=== PATIENT | female | born 1960 | race Caucasian/White ===

== ENCOUNTER → 2017-03-28 | Outpatient (REF) | payer OTHER | LOC: M LAB REF 13:14 | PROVIDERS: ATTEND Obstetrics & Gynecology | DX: Z12.4 Encounter for screening for malignant neoplasm of cervix (principal) ==

== ENCOUNTER → 2017-06-09 | Outpatient (CLI) | payer OTHER ==
--- NOTE | 2017-06-09 11:52 | REPMRS ---
Patient History The patient states she had a clinical breast exam in March 2017. Patient had first child at age 34. Family history of unknown cancer in father at age 72 and breast cancer in mother at age 68. Benign core biopsy of the right breast, 2005. Took hormonal contraceptives for 10 years. Digital Mammo Screening Bilat: June 09, 2017 - Exam #: [id number] Bilateral CC and MLO view(s) were taken. Technologist: Deanne Bolaños, Technologist Prior study comparison: January 22, 2016, bilateral digital mammo screening bilat performed at [facility]. November 14, 2014, bilateral bilat screen digital mammo, performed at [facility] ([facility] FINDINGS: There are scattered fibroglandular densities. There has been no change in the appearance of the mammogram from the prior studies. There is a mild amount of residual fibroglandular tissue which is fairly symmetric. There is no interval development of dominant mass, architectural distortion, or clustered microcalcification suggestive of malignancy. ASSESSMENT: BI-RADS/ACR category 1 mammogram. Negative. Recommendation Routine screening mammogram in 1 year (for women over age 40). This mammogram was interpreted with the aid of an FDA-approved computer-aided dectection system. Electronically Signed By: Gilberto Wu MD 06/09/17 [id number]
== END ==
LOC: M RAD 10:10
PROVIDERS: ATTEND Obstetrics & Gynecology
DX: Z12.31 Encounter for screening mammogram for malignant neoplasm of breast (principal)

== ENCOUNTER → 2018-06-22 | Outpatient (CLI) | payer OTHER | LOC: M WHC 13:31 | DX: Z12.31 Encounter for screening mammogram for malignant neoplasm of breast (principal); Z13.820 Encounter for screening for osteoporosis ==

== ENCOUNTER → 2019-02-15 | Day surgery (SDC) | payer OTHER ==
[~2019-02-15] VITALS: Ht 162.6 cm; Wt 97.1 kg
[~2019-02-15] MED LIST: BUPR1TAB53 PO; GLYCOPYRROLATE INJ 0.2 MG/ML 2 ML VIAL As Ordered ONE; LIDOCAINE 2% INJ 100 MG/5 ML SDV (FOR ANES.) As Ordered ONE; NS 1,000 ML IV ONE; PROPOFOL 200 MG/20 ML VIAL As Ordered ONE; TIMO0.5S42 OP
--- NOTE | 2019-02-15 07:51 | ROOR ---
Patient Name: Lidia Weems Procedure Date: 02/15/2019 7:32 AM Date of : 1960 Age: 59 Room: [facility] Gender: Female Note Status: Finalized Procedure: Colonoscopy Indications: Screening for colorectal malignant neoplasm Providers: DO Jessica Newby MD: Vance Chapman MD Requesting Provider: Medicines: Propofol per Anesthesia Complications: No immediate complications. Procedure: Pre-Anesthesia Assessment: - Prior to the procedure, a History and Physical was performed, and patient medications and allergies were reviewed. The patient is competent. The risks and benefits of the procedure and the sedation options and risks were discussed with the patient. All questions were answered and informed consent was obtained. Patient identification and proposed procedure were verified by the physician, the nurse, the anesthesiologist and the greenhouse technician in the endoscopy suite. Mental Status Examination: alert and oriented. Airway Examination: normal oropharyngeal airway and neck mobility. Respiratory Examination: clear to auscultation. CV Examination: normal. Prophylactic Antibiotics: The patient does not require prophylactic antibiotics. Prior Anticoagulants: The patient has taken no previous anticoagulant or antiplatelet agents. ASA Grade Assessment: II - A patient with mild systemic disease. After reviewing the risks and benefits, the patient was deemed in satisfactory condition to undergo the procedure. The anesthesia plan was to use monitored anesthesia care (MAC). Immediately prior to administration of medications, the patient was re-assessed for adequacy to receive sedatives. The heart rate, respiratory rate, oxygen saturations, blood pressure, adequacy of pulmonary ventilation, and response to care were monitored throughout the procedure. The physical status of the patient was re-assessed after the procedure. The Colonoscope was introduced through the anus and advanced to the cecum, identified by appendiceal orifice and ileocecal valve. The colonoscopy was performed without difficulty. The patient tolerated the procedure well. Findings: The perianal exam findings include non-thrombosed internal hemorrhoids and internal hemorrhoids (Grade I). Multiple small-mouthed diverticula were found in the sigmoid colon. Estimated blood loss: none. The exam was otherwise without abnormality on direct and retroflexion views. Impression: - Non-thrombosed internal hemorrhoids and internal hemorrhoids (Grade I) found on perianal exam. - Diverticulosis in the sigmoid colon. - The examination was otherwise normal on direct and retroflexion views. - No specimens collected. Recommendation: - Patient has a contact number available for emergencies. The signs and symptoms of potential delayed complications were discussed with the patient. Return to normal activities tomorrow. Written discharge instructions were provided to the patient. - Repeat colonoscopy in 5-10 years for screening purposes. - Return to my office PRN. Gilberto Mittal DO 02/15/2019 7:50:33 AM This report has been signed electronically. Number of Addenda: 0 Note Initiated On: 02/15/2019 7:32 AM Estimated Blood Loss: Estimated blood loss: none.
[2019-02-15 08:15] VITALS: BP 116/70
== END | disposition home or self-care (01) ==
LOC: M OPP 06:48
PROVIDERS: ATTEND Surgery
DX: Z12.11 Encounter for screening for malignant neoplasm of colon (principal); K64.0 First degree hemorrhoids; K57.30 Diverticulosis of large intestine without perforation or abscess without bleeding; Z79.899 Other long term (current) drug therapy; Z88.1 Allergy status to other antibiotic agents

== ENCOUNTER → 2019-07-05 | Outpatient (CLI) | payer OTHER ==
[~2019-07-05] MED LIST changes: -GLYCOPYRROLATE INJ 0.2 MG/ML 2 ML VIAL As Ordered ONE; -LIDOCAINE 2% INJ 100 MG/5 ML SDV (FOR ANES.) As Ordered ONE; -NS 1,000 ML IV ONE; -PROPOFOL 200 MG/20 ML VIAL As Ordered ONE
--- NOTE | 2019-07-05 13:23 | REPMRS ---
Patient History The patient states she had a clinical breast exam in 03/2019. Patient is postmenopausal and had first child at age 34. Family history of breast cancer at age 68 in mother. Benign core biopsy of the right breast, 2006. Took hormonal contraceptives for 10 years. 3D TOMOSYNTHESIS WAS PERFORMED. Digital Woman Screen Mammo: July 05, 2019 - Exam #: [id number] Bilateral CC and MLO view(s) were taken. Technologist: Becky Adame, Technologist Prior study comparison: June 22, 2018, bilateral digital woman screen mammo performed at [facility]. June 09, 2017, bilateral digital mammo screening bilat, performed at [facility]. FINDINGS: There are scattered fibroglandular densities. There has been no change in the appearance of the mammogram from the prior studies. There is a mild amount of residual fibroglandular tissue which is fairly symmetric. There is no interval development of dominant mass, architectural distortion, or clustered microcalcification suggestive of malignancy. Assessment: BI-RADS/ACR category 1 mammogram. Negative Mammogram. Recommendation Routine screening mammogram in 1 year (for women over age 40). This mammogram was interpreted with the aid of an FDA-approved computer-aided dectection system. THE LIFETIME RISK OF BREAST CANCER IS 22.0%, THEREFORE SUPPLEMENTAL SCREENING MRI OF THE BREASTS IS RECOMMENDED IN 6 MONTHS. Electronically Signed By: Gilberto Wu MD 07/05/19 [id number]
== END ==
LOC: M WHC 11:30
PROVIDERS: ATTEND Obstetrics & Gynecology
DX: Z12.31 Encounter for screening mammogram for malignant neoplasm of breast (principal); Z80.3 Family history of malignant neoplasm of breast

== ENCOUNTER → 2020-08-11 | Outpatient (CLI) | payer OTHER ==
--- NOTE | 2020-08-11 14:36 | REPMRS ---
Patient History The patient states she had a clinical breast exam in March 2020.Family history of breast cancer at age 68 in mother. Benign core biopsy of the right breast, 2006. Took hormonal contraceptives for 10 years. 3D TOMOSYNTHESIS WAS PERFORMED. FERNANDO Olivas. Digital Woman Screen Mammo: August 11, 2020 - Exam #: [id number] Bilateral CC and MLO view(s) were taken. Technologist: Marcella Epperson, Technologist Prior study comparison: July 05, 2019, bilateral digital woman screen mammo performed at [facility]. June 22, 2018, bilateral digital woman screen mammo performed at [facility]. FINDINGS: There are scattered fibroglandular densities. There is a fairly symmetric fibroglandular pattern in both breasts. There has been no interval development of masses, areas of architectural distortion or clusters of microcalcifications typical of malignancy. There is a stable small nodular opacity in the lower outer left breast. Assessment: BI-RADS/ACR category 2 mammogram. Benign Findings. Recommendation Routine screening mammogram of both breasts in 1 year (for women over age 40). This mammogram was interpreted with the aid of an FDA-approved computer-aided dectection system. THE LIFETIME RISK OF BREAST CANCER IS 21.5 %, THEREFORE SUPPLEMENTAL SCREENING MRI OF THE BREASTS IS RECOMMENDED IN 6 MONTHS. Electronically Signed By: Gilberto Wu MD 08/11/20 0434
--- NOTE | 2020-08-24 15:17 | DEXA ---
AP SPINE L1 - L4 1.069 -1.0 0.1 LT FEMUR TOTAL 0.951 -0.4 0.4 LT NECK 0.873 -1.2 0.0 RT FEMUR TOTAL 0.944 -0.5 0.3 RT NECK 0.999 -0.3 0.9 TOTAL BODY TOTAL OTHER COMMENTS: Normal bone densitometry of the right hip. There is low bone density of the spine. There is low bone density of the left hip. The density of the spine has decreased 4.4% since 06/22/2018. The density of the left hip has decreased 3.3% since 06/22/2018. The density of the right hip has decreased 3.4% since 06/22/2018. FOLLOW-UP: Recommendation for the next bone density exam: 2 years. ELIZA
== END ==
LOC: M WHC 12:37
PROVIDERS: ATTEND Obstetrics & Gynecology
DX: Z12.31 Encounter for screening mammogram for malignant neoplasm of breast (principal); Z13.820 Encounter for screening for osteoporosis

== ENCOUNTER → 2021-03-08 | Outpatient (REF) | payer OTHER, SELFPAY | LOC: M LAB REF 12:10 | PROVIDERS: ATTEND Obstetrics & Gynecology | DX: R39.15 Urgency of urination (principal) ==

== ENCOUNTER → 2021-05-14 | Outpatient (REF) | payer OTHER ==
[2021-05-14 14:40] LABS: ALBUMIN 3.7 GM/DL (3.2-5.2); ALT/SGPT 27 U/L (12-78); BILIRUBIN,TOTAL 0.6 MG/DL (0.2-1.0); BLOOD UREA NITROGEN 10 MG/DL (7-18); CARBON DIOXIDE LEVEL 27 MEQ/L (21-32); CHLORIDE LEVEL 108 MEQ/L (98-107); CHOLESTEROL LEVEL 184 MG/DL (<200); CREATININE FOR GFR 0.76 MG/DL (0.55-1.30); GLOMERULAR FILTRATION RATE > 60.0 (>51); GLUCOSE, FASTING 90 MG/DL (70-100); HDL CHOLESTEROL 40 MG/DL (>40); LDL CHOLESTEROL 117 MG/DL (<100); NON-HDL-C 144 MG/DL; POTASSIUM SERUM 4.4 MEQ/L (3.5-5.1); SODIUM LEVEL 141 MEQ/L (136-145); TOTAL PROTEIN 6.6 GM/DL (6.4-8.2); TRIGLYCERIDES LEVEL 133 MG/DL (<150)
== END ==
LOC: M LAB REF 12:39
PROVIDERS: ATTEND Family Medicine
DX: N95.1 Menopausal and female climacteric states (principal); E78.5 Hyperlipidemia, unspecified; F34.1 Dysthymic disorder

== ENCOUNTER → 2021-08-27 | Outpatient (CLI) | payer OTHER ==
--- NOTE | 2021-08-27 12:35 | REPMRS ---
Patient History The patient states she had a clinical breast exam in May 2021. Family history of breast cancer at age 68 in mother. Benign core biopsy of the right breast, 2006. Took hormonal contraceptives for 10 years. Patient states no breast complaints today. Patient has signed MRS History Sheet. Digital Woman Screen Mammo: August 27, 2021 - Exam #: [id number] Bilateral CC and MLO view(s) were taken. Technologist: Yasmeen Willis, Technologist Prior study comparison: August 11, 2020, bilateral digital woman screen mammo performed at [facility]. July 05, 2019, bilateral digital woman screen mammo performed at [facility]. FINDINGS: There are scattered fibroglandular densities. Screening. Digital screening (2D) mammography was performed bilaterally in the CC and MLO projections. Additionally, breast tomosynthesis (3D mammography) was performed bilaterally in the CC and MLO projections. Todays exam was compared to the prior exam/exams. By history, the patient has no complaints of a palpable breast abnormality or other significant breast complaints. The breasts are unchanged in size and shape. There are no gloria-soft tissue densities or spiculated masses. There is no internal architectural distortion. There are no suspicious gloria-calcific clusters. Skin thickening or nipple retraction is not present. IMPRESSION: BI-RADS Category 2- Benign Findings. There is no evidence of malignant alteration of the breasts. Followup examination recommended in one year. The Volpara volumetric breast density category is B, there are scattered areas of fibroglandular densities. This mammogram was read with the assistance of [facility] [employer],an FDA approved computer aided detection system for mammography. The lifetime Tyrer-Cuzick score is 20.9 % Due to the density of the breasts or Tyrer Cuzick score of 20% or greater, MRI/whole breast screening ultrasound is warranted. Negative x-ray reports should not delay surgical consultation if a dominant or clinically suspicious mass is present. Not all breast cancers can be identified by mammography. Therefore, we recommend that you continue to perform regular breast self-examination and physical examination and then promptly contact your physician of any concerns or changes. Adenosis and dense breasts may obscure an underlying neoplasm. Assessment: BI-RADS/ACR category 2 mammogram. Benign Findings. Recommendation Routine screening mammogram of both breasts in 1 year. Electronically Signed By: Mervin Salazar DO 08/27/21 [id number]
== END ==
LOC: M WHC 11:41
PROVIDERS: ATTEND Obstetrics & Gynecology
DX: Z12.31 Encounter for screening mammogram for malignant neoplasm of breast (principal)

== ENCOUNTER → 2023-09-08 | Outpatient (CLI) | payer OTHER | LOC: M WHC 09:29 | PROVIDERS: ATTEND Obstetrics & Gynecology | DX: Z12.31 Encounter for screening mammogram for malignant neoplasm of breast (principal) ==

== ENCOUNTER → 2024-09-13 | Outpatient (CLI) | payer OTHER | LOC: M WHC 09:56 | PROVIDERS: ATTEND Obstetrics & Gynecology | DX: Z12.31 Encounter for screening mammogram for malignant neoplasm of breast (principal); Z13.820 Encounter for screening for osteoporosis; M85.89 Other specified disorders of bone density and structure, multiple sites; R92.313 Mammographic fatty tissue density, bilateral breasts ==

== ENCOUNTER → 2025-03-07 | Outpatient (CLI) | payer OTHER ==
[~2025-03-07] MED LIST changes: +ISOVUE-370 76% 100ML VIAL As Ordered ONE
== END ==
LOC: M RAD 10:49
PROVIDERS: ATTEND Family Medicine
DX: R10.9 Unspecified abdominal pain (principal); K80.20 Calculus of gallbladder without cholecystitis without obstruction; N28.1 Cyst of kidney, acquired; K57.30 Diverticulosis of large intestine without perforation or abscess without bleeding; K42.9 Umbilical hernia without obstruction or gangrene
CPT/HCPCS: 74177; Q9967

== ENCOUNTER → 2025-03-23 | Outpatient (REF) | payer OTHER ==
[~2025-03-23] MED LIST changes: +BUPR150T15 PO; -BUPR1TAB53 PO; -ISOVUE-370 76% 100ML VIAL As Ordered ONE
== END ==
LOC: M LAB REF 12:23
PROVIDERS: ATTEND Family Medicine
DX: R74.01 Elevation of levels of liver transaminase levels (principal)

== ENCOUNTER → 2025-07-20 | Outpatient (REF) | payer OTHER | LOC: M LAB REF 12:02 | PROVIDERS: ATTEND Family Medicine | DX: R74.01 Elevation of levels of liver transaminase levels (principal) ==

== ENCOUNTER → 2025-09-14 | Outpatient (CLI) | payer OTHER | LOC: M WHC 10:30 | PROVIDERS: ATTEND Obstetrics & Gynecology | DX: Z12.31 Encounter for screening mammogram for malignant neoplasm of breast (principal); R92.313 Mammographic fatty tissue density, bilateral breasts ==